=== PATIENT | male | born 2000 | race Caucasian/White ===

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

== ENCOUNTER 2018-05-09 20:45 | Emergency (ER) | payer OTHER ==
[2018-05-09 20:53] VITALS: BP 158/86
--- NOTE | 2018-05-09 21:42 | UC ---
General HPI - HPI Summary HPI Summary: 17 yo gentleman c/o L eye itchy, watery. Notes a sores under the lower lid. Reports that he sometimes gets herpes virus sores on forehead or near the eyes. Last sore was R medial eye, last month. Has 2 valcyclovir tablets available, but wanted to get checked because concerned he might need further eval / tx. Wears contact lenses. Recently got over a uri illness, thinks this may have prompted current lesion. No vis changes. No fever / chills. No mouth or ear sores. No genital lesions. - History of Current Complaint Chief Complaint: ABDIRASHIDEyalana Stated Complaint: RASH, AND EYE IRRITATION Time Seen by Provider: 05/09/18 21:41 Hx Obtained From: Patient Pain Intensity: 5 - Allergy/Home Medications Allergies/Adverse Reactions: Allergies Allergy/AdvReac Type Severity Reaction Status Date / Time No Known Allergies Allergy Verified 05/09/18 20:53 Home Medications: Home Medications ValACYclovir (*) [Valtrex 500 mg (*)] 500 mg PO DAILY 05/09/18 [History Confirmed 05/09/18] PMH/Surg Hx/FS Hx/Imm Hx Previously Healthy: Yes - see hpi - Surgical History Surgical History: Yes Surgery Procedure, Year, and Place: T & A when 8 years old - Family History Known Family History: Positive: None - Social History Alcohol Use: Rare Substance Use Type: None Smoking Status (MU): Never Smoked Tobacco Review of Systems All Other Systems Reviewed And Are Negative: Yes Constitutional: Positive: Negative Skin: Positive: Other - see hpi Eyes: Positive: Other - see hpi ENT: Positive: Negative Respiratory: Positive: Negative Cardiovascular: Positive: Negative Gastrointestinal: Positive: Negative Genitourinary: Positive: Negative Motor: Positive: Negative Neurovascular: Positive: Negative Musculoskeletal: Positive: Negative Neurological: Positive: Negative Psychological: Positive: Negative Is Patient Immunocompromised?: No Physical Exam Triage Information Reviewed: Yes Appearance: Well-Appearing, Well-Nourished Vital Signs: Initial Vital Signs Temp 97.3 F 05/09/18 20:49 Pulse 87 05/09/18 20:49 Resp 18 05/09/18 20:49 BP 158/86 05/09/18 20:49 Pulse Ox 100 05/09/18 20:49 Vital Signs Reviewed: Yes Eye Exam: Other - PERRLA EOMI R eye nad Just below on face left lower lid with approx 0.5cm red bump, not draining. Wearing contact lens (removed for exam and per avs instructions) Flour stain Left eye - ring under contact lens, no ulcer / fb / abrasion ENT Exam: Other - L caulifl ear ENT: Positive: Pharynx normal Neck exam: Normal Neck: Positive: Supple Respiratory Exam: Normal - RR normal, no tachypnea, no dyspnea Cardiovascular Exam: Normal - HR normal, nondiaphoretic. Abdominal Exam: Normal - no c/o, sitting up Musculoskeletal Exam: Normal Neurological Exam: Normal Psychological Exam: Normal Skin Exam: Normal Course/Dx - Course Course Of Treatment: Reviewed coa / tx plan. Sore is under the lid, eye stains negative for ulcer. However, given contact lens ring and close proximity to lid , will start ciprofloxacin. Encouraged close F/u opthalmologist. See avs. Has eye doctor in [facility], but not in [place]. Questions as posed answered to the best of my ability. - Diagnoses Provider Diagnosis: Herpes Discharge - Sign-Out/Discharge Documenting (check all that apply): Patient Departure All imaging exams completed and their final reports reviewed: No - Discharge Plan Condition: Stable Disposition: HOME Prescriptions: ValACYclovir (*) [Valtrex 1 GM(*)] 1 gm PO TID #30 tab Patient Education Materials: Oral Herpes Simplex Virus Infections (ED) Referrals: No Primary Care Phys,NOPCP [Primary Care Provider] - Evans Levi MD [Medical Doctor] - Austin Carrion MD [Medical Doctor] - Additional Instructions: Please follow up with OPTHALMOLOGIST - call Saturday for same day appointment, if possible. Seek medical attention for worse or new problems. NO CONTACT LENSES UNTIL YOUR SYMPTOMS HAVE RESOLVED. Your eye is irritated under the margins of the contact lenses. Consider the following supplements: Vitamin B complex Lysine - Billing Disposition and Condition Condition: STABLE Disposition: Home
[2018-05-09] MEDS ORDERED: Fluorescein Sodium TOPICAL* 1 MG TEST STRIP OPHTHALMIC ONE (21:54)
[2018-05-09] MEDS ORDERED: Tetracaine 0.5% OPTH.SOL 4 ML* 1 DROP BTL LEFT EYE ONE (21:55)
[2018-05-09] MEDS ORDERED: Ciprofloxacin 0.3% OPTH.SOL* 2.5 ML BTL LEFT EYE ONE (22:23)
== END 2018-05-09 22:37 | disposition home or self-care (01) ==
LOC: UCEAST 20:45
DX: B00.9 Herpesviral infection, unspecified (principal)
CPT/HCPCS: 99212; A9270-GY; G0463

== ENCOUNTER 2018-08-05 15:25 | Emergency (ER) | payer OTHER ==
--- NOTE | 2018-08-05 16:29 | ED ---
Skin Complaint - HPI Summary HPI Summary: Patient is a 17-year-old male who presents emergency department for possible abscess to right shoulder times several days. Patient states he has a respiratory at [place] and has had abscesses in the past. Patient states he noticed a pimple-like structure to his right upper shoulder that presently got larger and more red. Patient states he tried to pop area and some pus drained. Patient denies fever, chills, nausea, vomiting. He has no past medical history. Symptoms are mild in severity. Touching affected area makes symptoms worse. Rest makes symptoms better. - History of Current Complaint Chief Complaint: EDRashSkinAbscess Time Seen by Provider: 08/05/18 15:47 Stated Complaint: POSS STAPH INFECTION ON RT SHOULDER PER PT Hx Obtained From: Patient Pain Intensity: 0 - Allergy/Home Medications Allergies/Adverse Reactions: Allergies Allergy/AdvReac Type Severity Reaction Status Date / Time No Known Allergies Allergy Verified 05/09/18 20:53 PMH/Surg Hx/FS Hx/Imm Hx Previously Healthy: Yes Endocrine/Hematology History: Denies: Hx Diabetes, Hx Thyroid Disease Cardiovascular History: Denies: Hx Hypertension Respiratory History: Denies: Hx Asthma, Hx Chronic Obstructive Pulmonary Disease (COPD) GI History: Denies: Hx Ulcer - Surgical History Surgery Procedure, Year, and Place: T & A when 8 years old Infectious Disease History: Yes Infectious Disease History: Denies: Hx Hepatitis, Hx Human Immunodeficiency Virus (HIV), Traveled Outside the [place] in Last 30 Days - Family History Known Family History: Positive: None, Non-Contributory - Social History Occupation: Student Lives: Dormitory/Roommates Alcohol Use: Rare Substance Use Type: Reports: None Smoking Status (MU): Never Smoked Tobacco Review of Systems Constitutional: Negative Negative: Fever, Chills Positive: Other - pustule to right upper arm All Other Systems Reviewed And Are Negative: Yes Physical Exam Triage Information Reviewed: Yes Vital Signs On Initial Exam: Initial Vitals Temp Pulse Resp BP Pulse Ox 97.9 F 79 16 177/94 100 08/05/18 15:27 08/05/18 15:27 08/05/18 15:27 08/05/18 15:27 08/05/18 15:27 Vital Signs Reviewed: Yes Appearance: Positive: Well-Appearing - Pt. sitting up in bed in NAD. Skin: Positive: Warm, Dry, Other - 1cm pustule noted to superior aspect of right shoulder. Minimal surrounding erythema. Small opening and small amount of yellow drainage and blood expressed. Eyes: Positive: Normal, EOMI Neck: Positive: Supple Musculoskeletal: Positive: Normal, Strength/ROM Intact Neurological: Positive: Normal, CN Intact II-III Psychiatric: Positive: Affect/Mood Appropriate Diagnostics - Vital Signs Vital Signs Temp Pulse Resp BP Pulse Ox 08/05/18 15:27 97.9 F 79 16 177/94 100 - Laboratory Lab Statement: Any lab studies that have been ordered have been reviewed, and results considered in the medical decision making process. Course/Dx - Course Course Of Treatment: Patient presenting with small pustule that is draining to right upper arm. He is afebrile and well-appearing. We'll start him on Bactrim and Bactroban ointment. Advised to clean and dry. Apply warm compresses. Follow up with [facility] for recheck and return the ER if symptoms change or worsen. - Differential Diagnoses - Skin Complaint Differential Diagnoses: Abscess, Cellulitis, Impetigo, MRSA - Diagnoses Provider Diagnoses: Skin pustule Discharge - Sign-Out/Discharge Documenting (check all that apply): Patient Departure Patient Received Moderate/Deep Sedation with Procedure: No - Discharge Plan Condition: Good Disposition: HOME Prescriptions: Mupirocin 2% OINT* [Bactroban 2 % Oint*] 1 applic TOPICAL BID #1 tube Sulfamethox/Trimethoprim DS* [Bactrim DS 800/160 TAB*] 1 tab PO BID #20 tab Patient Education Materials: Abscess (ED) Referrals: [facility] [Outside] Additional Instructions: Schedule an appointment with [facility] within 1 week for wound check Medication as directed Keep area clean and dry Apply warm compresses Return to ER for increased redness, swelling, fever, or if concerned - Billing Disposition and Condition Condition: GOOD Disposition: Home
[2018-08-05 16:45] VITALS: BP 149/90
--- NOTE | 2018-08-06 07:24 | PN ---
Progress Note - Progress Note Date of Service: 08/05/18 Note: Wound culture final grew MRSA negative staph aureus positive Patient was placed on Bactrim prior to discharge This is appropriate treatment Nothing further at this time
== END 2018-08-05 16:45 | disposition home or self-care (01) ==
LOC: ED 15:25
DX: L08.9 Local infection of the skin and subcutaneous tissue, unspecified (principal)
CPT/HCPCS: 87070; 87077; 87186; 87205; 87640; 87641; 99282

== ENCOUNTER 2018-12-07 17:56 | Emergency (ER) | payer OTHER ==
--- NOTE | 2018-12-07 18:27 | UC ---
Upper Extremity HPI - HPI Summary HPI Summary: Wrestled today during match and injured his L fifth pinky finger. Has pain at the base. ABle to open/close hand. denies tingling/numbness . movement makes it worse, nothing makes it better. - History of Current Complaint Chief Complaint: UCUpperExtremity Stated Complaint: FINGER INJURY Time Seen by Provider: 12/07/18 18:03 Hx Obtained From: Patient Pain Intensity: 8 Pain Scale Used: 0-10 Numeric - Allergies/Home Medications Allergies/Adverse Reactions: Allergies Allergy/AdvReac Type Severity Reaction Status Date / Time No Known Allergies Allergy Verified 12/07/18 18:21 PMH/Surg Hx/FS Hx/Imm Hx - Additional Past Medical History Additional PMH: Cauliflower ear Left Previously Healthy: Yes - Surgical History Surgical History: Yes Surgery Procedure, Year, and Place: T & A when 8 years old - Family History Known Family History: Positive: None, Non-Contributory - Social History Alcohol Use: Rare Substance Use Type: None Smoking Status (MU): Never Smoked Tobacco Review of Systems All Other Systems Reviewed And Are Negative: Yes Constitutional: Negative: Fever Skin: Negative: Rash, Bruising Motor: Negative: Decreased ROM, Weakness Neurovascular: Negative: Decreased Sensation Musculoskeletal: Positive: Arthralgia. Negative: Edema, Myalgia Physical Exam Triage Information Reviewed: Yes Appearance: Well-Appearing Vital Signs: Initial Vital Signs Temp 99.2 F 12/07/18 18:14 Pulse 76 12/07/18 18:14 Resp 16 12/07/18 18:14 Pulse Ox 99 12/07/18 18:14 Vital Signs Reviewed: Yes Respiratory: Positive: No respiratory distress Cardiovascular: Positive: Brisk Capillary Refill - L finger tips Musculoskeletal: Positive: Strength Intact - L hand, ROM Intact - L hand and fingers., Other: - Tenderness at base of fith small finger. Neurological: Positive: Alert Skin: Negative: Rashes Upper Extremity Course/Dx - Course Course Of Treatment: L fifth last finger injured during wrestling match. Pain w/ manipulation but otherwise no abnorrmalities on exam. prelim xray reading was neg for fx at this point but final read will be done tomorrow. neurovascularly intact. bp ELEVATED AND WILL DISC W/ PCP. - Differential Dx/Diagnosis Differential Diagnosis/HQI/PQRI: Fracture (Closed), Strain, Sprain Provider Diagnosis: Finger pain Discharge ED - Sign-Out/Discharge Documenting (check all that apply): Patient Departure All imaging exams completed and their final reports reviewed: No - Discharge Plan Condition: Good Disposition: HOME Patient Education Materials: Finger Sprain (ED) Referrals: No Primary Care Phys,NOPCP [Primary Care Provider] - Additional Instructions: The final read will be done tomorrow. - Billing Disposition and Condition Condition: GOOD Disposition: Home
[2018-12-07 18:29] VITALS: BP 156/90
== END 2018-12-07 19:05 | disposition home or self-care (01) ==
LOC: UCEAST 17:56
DX: M25.542 Pain in joints of left hand (principal); X58.XXXA Exposure to other specified factors, initial encounter; Y93.72 Activity, wrestling; Y92.9 Unspecified place or not applicable
CPT/HCPCS: 73140; 99212; G0463